=== PATIENT | male | born 1975 | race Caucasian/White ===

== ENCOUNTER 2021-05-10 16:38 | Emergency (ER) | payer BC ==
[~2021-05-10] VITALS: Ht 190.5 cm; Wt 104.3 kg
[2021-05-10] MEDS ORDERED: SODIUM BICARBONATE 4.2 % (NEUT) 5 ML VIAL TP ONE (17:15)
[2021-05-10] MEDS ORDERED: LIDOCAINE HCL 2% 20 ML VIAL TP ONE (17:15)
[2021-05-10] MEDS ORDERED: HYDROCODONE/APAP 10-325 MG TABLET PO ONE (17:15)
[2021-05-10] MEDS ORDERED: TDAP DIPH,PERTUSS,TET VAC/PF 0.5 ML DISP.SYRIN IM ONE ×2 (17:15→17:54)
[2021-05-10] MEDS ORDERED: IV NORMAL SALINE 1000 ML BAG IV ONE (17:15)
[2021-05-10] MEDS ORDERED: LET TOPICAL SOLUTION 8 ML UDC TP ONE (17:15)
[2021-05-10] MEDS ORDERED: LIDOCAINE HCL 2% 20 ML VIAL ONE (17:15)
[2021-05-10] MEDS ORDERED: SODIUM BICARBONATE 4.2 % (NEUT) 5 ML VIAL ONE (17:16)
[2021-05-10] MEDS ORDERED: LET TOPICAL SOLUTION 8 ML UDC ONE (17:17)
[2021-05-10 17:27] LABS: HEMATOCRIT 43.1 % (36.7-47.1); MEAN CORPUSCULAR VOLUME 84.7 fL (73.0-96.2); PLATELET COUNT (AUTO) 316 K/uL (152-348)
[2021-05-10 17:34] LABS: CARBON DIOXIDE 24 mmol/L (21-32); CHLORIDE 103 mmol/L (98-107); GLUCOSE 125 mg/dL (74-106); POTASSIUM 3.8 mmol/L (3.5-5.1); UREA NITROGEN, BLOOD 17 mg/dL (7-18)
--- NOTE | 2021-05-10 17:40 | NUR ---
PT IS IN ROOM #1A. DR BLANDON EVALUATED THE PT.
[2021-05-10 17:43] LABS: ALANINE AMINOTRANSFERASE 40 U/L (16-63); ALKALINE PHOSPHATASE 79 U/L (50-136); ASPARTATE AMINOTRANSFERASE 20 U/L (15-37); BILIRUBIN,DIRECT 0.1 mg/dL (0.0-0.2); BILIRUBIN,TOTAL 0.9 mg/dL (0.2-1.0); TOTAL PROTEIN, SERUM 7.2 g/dL (6.4-8.2)
[2021-05-10] MEDS ORDERED: HYDROCODONE/APAP 10-325 MG TABLET ONE (17:54)
[2021-05-10] MEDS ORDERED: ONDANSETRON ODT 4 MG TAB.RAPDIS ONE (18:04)
[2021-05-10] MEDS ORDERED: ONDANSETRON ODT 4 MG TAB.RAPDIS SL ONE (19:15)
[2021-05-10] MEDS ORDERED: ONDA4TAB5 PO (19:22)
[2021-05-10] MEDS ORDERED: HYDR-3980 PO (19:22)
[2021-05-10] MEDS ORDERED: NEOMY/BACITRA/POLYMYXIN B OINT UD PACKET TP ONE ×2 (19:26→19:30)
--- NOTE | 2021-05-10 19:35 | NUR ---
Patient discharged to home in stable condition. Written and verbal after care instructions given. Patient verbalizes understanding of instructions. Stressed follow up or return to ER for worsening s/s. Steady gait, denies any WHITTAKER, dizzyness, no changes in LOC. Denies any pain/discomfort upon discharge. Accompanied by .
[2021-05-10 19:40] VITALS: BP 122/78
== END 2021-05-10 19:41 | disposition home or self-care (01) ==
LOC: ER 17:17
DX: S61.212A Laceration without foreign body of right middle finger without damage to nail, initial encounter (principal); S61.411A Laceration without foreign body of right hand, initial encounter; W25.XXXA Contact with sharp glass, initial encounter; Y93.89 Activity, other specified; Y92.89 Other specified places as the place of occurrence of the external cause; R56.9 Unspecified convulsions; I44.0 Atrioventricular block, first degree
CPT/HCPCS: 12001; 36415; 70450; 73130; 80048; 80076; 84484; 85025; 90471; 90715; 93005; 99285; J3490 ×2; A4217; Q0162